=== PATIENT | male | born 1980 | race Caucasian/White ===

== ENCOUNTER → 2020-07-08 | Outpatient (CLI) | payer BC ==
[~2020-07-08] MED LIST: CLON.5; Flonase 0.05% N16 GM; IBUP400 PO; LATUDA20 MG PO; LITH300C; PROBIOTIC1 EAC1 PO; Percocet 5-3251 EACH PO; TRAM50 PO; Zofran Odt4 MG SL
[2020-07-08 14:04] LABS: Prostate Specific Antigen 0.648 ng/mL (0.000-4.000)
== END ==
LOC: LAB 09:15 → LAB SHORT 09:15
PROVIDERS: Family Medicine
DX: Z12.5 Encounter for screening for malignant neoplasm of prostate (principal); Z80.42 Family history of malignant neoplasm of prostate
CPT/HCPCS: G0103

== ENCOUNTER → 2022-05-12 | Outpatient (CLI) | payer BC | END | disposition home or self-care (01) | LOC: LAB 16:26 → LAB SHORT 16:26 | DX: L02.91 Cutaneous abscess, unspecified (principal) | CPT/HCPCS: 87070; 87075; 87077; 87147; 87186; 87205 ==

== ENCOUNTER → 2022-12-26 | Outpatient (CLI) | payer BC ==
[2022-12-30 06:10] LABS: TRAMADOL >11905 (.)
== END | disposition home or self-care (01) ==
LOC: LAB 12:20 → LAB SHORT 12:20
PROVIDERS: Physician Assistant
DX: M54.12 Radiculopathy, cervical region (principal); G89.4 Chronic pain syndrome; M54.2 Cervicalgia
CPT/HCPCS: 80307; G0480

== ENCOUNTER → 2023-05-08 | Outpatient (CLI) | payer BC | LOC: LAB 11:30 → LAB SHORT 11:30 | PROVIDERS: Family Medicine | DX: G89.4 Chronic pain syndrome (principal); M54.2 Cervicalgia; M54.12 Radiculopathy, cervical region | CPT/HCPCS: G0480 ==